=== PATIENT | female | born 1985 | race Caucasian/White ===

== ENCOUNTER 2017-12-09 20:49 | Emergency (ER) | payer SELFPAY ==
[~2017-12-09] VITALS: Ht 162.6 cm; Wt 77.1 kg
[~2017-12-09 20:49] MED LIST: FLAG500 PO; IBUPROFEN800 MG PO; TAMIFLU 75MG75 MG PO
[2017-12-09 20:53] VITALS: BP 167/94
[2017-12-09 21:15] LABS: ABSOLUTE BASOPHIL COUNT 0 /CUMM (0.0-0.2); ABSOLUTE EOSINOPHIL COUNT 0.2 /CUMM (0.0-0.7); ABSOLUTE GRANULOCYTE CT 3.2 /CUMM (1.4-6.5); ABSOLUTE LYMPH COUNT 2.1 /CUMM (1.2-3.4); ABSOLUTE MONOCYTE COUNT 0.7 /CUMM (0.10-0.60); BASOPHIL % 0.5 % (0.0-2.0); EOSINOPHIL % 2.5 % (0-5); GRANULOCYTE % 52.3 % (42.2-75.2); HEMATOCRIT 39.2 % (37-47); MEAN CORPUSCULAR HGB 29.4 PG (27.0-31.0); MEAN CORPUSCULAR HGB CONC 33.9 G/DL (33.0-37.0); MEAN CORPUSCULAR VOLUME 86.7 FL (81.0-99.0); MEAN PLATELET VOLUME 9.4 FL (7.4-10.4); PLATELET COUNT 168 /CUMM (130-400); RED BLOOD CELL CT 4.52 /CUMM (4.20-5.40); WHITE BLOOD CELL COUNT 6.1 /CUMM (4.8-10.8)
--- NOTE | 2017-12-09 21:52 | ED GI/GU/ABDOMINAL COMPLAINT ---
History of Present Illness General Chief Complaint: Abdominal Pain/Flank Pain Stated Complaint: LWR ABD PAIN RADIATING DOWN LEFT LEG Source: patient, old records Exam Limitations: no limitations Vital Signs & Intake/Output Vital Signs & Intake/Output Vital Signs Date Time Temp Pulse Resp B/P B/P Pulse O2 O2 Flow FiO2 Mean Ox Delivery Rate 12/099 Room Air 12/09 2052 96.8 78 18 167/94 97 Room Air ED Intake and Output 12/10 0000 12/09 1200 Intake Total Output Total Balance Patient 170 lb Weight Allergies Coded Allergies: nut - unspecified (Severe, THROAT CLOSURE 11/02/15) Sulfa (Sulfonamide Antibiotics) (UNKNOWN 11/02/15) Reconcile Medications Oseltamivir Phosphate (Tamiflu 75MG) 75 MG CAP 1 TAB PO BID . Triage Note: PT TO TRIAGE STATING SHE IS ON HER THIRD DAY OF MENSES AND SHE HAS BEEN HAVING LEFT LOWER QUADRANT "SQUEEZING" PAIN THAT RADIATES DOWN LEG, HAS SUBSIDED SOME NOW. PT STATES SHE WAS TOLD SHE HAD OVARIAN CYSTS DURING HER ONE AND ONLY 5 YEARS AGO. Triage Nurses Notes Reviewed? yes LMP (ages 10-50): now ? n Is pt currently ? No Onset: Abrupt Duration: day(s): (1), intermittent, waxing and waning Timing: recent history Quality/Severity: cramping Severity Numbers: 5 Location: left lower quadrant Radiation: back Activities at Onset: none No Modifying Factors: none Associated Symptoms: denies HPI: 32-year-old female history of ovarian cyst presents to the ER for evaluation stating that she developed left lower quadrant pain that radiates to her back and into her left thigh that began earlier today while at work she describes it as his wheezing cramping pain. She states she is on her third day of her menses and states that it is normal with the worst. She states 5 years ago when she had her she had bilateral ovarian cysts and that this feels similar. There is no right lower quadrant pain. She states she felt nauseous earlier from the pain denies vomiting denies dysuria frequency urgency hematuria. No diarrhea. She is not taken anything for her symptoms reports it comes in waves currently denies any pain (Laurel CABRERA,Jose) Past History Travel History Traveled to [place] past 21 day No Medical History Any Pertinent Medical History? none Neurological: NONE EENT: NONE Cardiovascular: NONE Respiratory: NONE Gastrointestinal: NONE Hepatic: NONE Renal: NONE Musculoskeletal: NONE Psychiatric: NONE Endocrine: NONE Blood Disorders: NONE Cancer(s): NONE CREDIT ASSOCIATE/Reproductive: NONE Surgical History Surgical History: N Psychosocial History What is your primary language Guyanese Tobacco Use: Never used Family History Hx Contributory? No (Jose Ruiz) Review of Systems Review of Systems Constitutional: Reports: see HPI. Comments Review of systems: See HPI, All other systems negative. Constitutional, no chills no fever HEENT: no sore throat no congestion Cardiovascular: No chest pain Skin: no rashes, no change in skin Respiratory: No dyspnea no cough no sputum GI: No nausea no vomiting : No dysuria No hematuria, no frequency Muscle skeletal: No joint pain, no back pain Neurologic: , no headache Heme/endocrine: No bruising Immunology: No lymphadenopathy (Jose Ruiz) Physical Exam Physical Exam General Appearance: well developed/nourished, no apparent distress, alert, awake Gastrointestinal: normal bowel sounds, soft, non-tender Comments: Well-developed well-nourished person in no acute distress HEENT: Normal EENT exam; PERRL, EOMI, HEAD is atraumatic. moist mucous membranes. Neck: Supple, normal range of motion Back: Nontender, no CVA tenderness. Full range of motion Cardiovascular: Regular rate and rhythms no murmurs Respiratory: No respiratory distress. Patient speaking in full complete sentences. Breath sounds clear to auscultation bilaterally: NO W/R/R Abdomen: Soft, nontender nondistended, no appreciable organomegaly. Normal bowel sounds. No rebound/guarding, Extremity: No edema, full range of motion of extremities Neuro: Alert oriented x3, motor sensory normal, There were no obvious focal neurologic abnormalities. Skin: No appreciable rash on exposed skin, skin is warm and dry. Psych: Mood and affect is normal, memory and judgment is normal. Core Measures ACS in differential dx? No Sepsis Present: No Sepsis Focused Exam Completed? No (Jose Ruiz) Progress Differential Diagnosis: appendicitis, biliary colic, bowel obstruction, ectopic , inflamm bowel dis, intrauterine , kidney stone, ovarian cyst , ovarian torsion, peptic ulcer, PUD/GERD, perforated viscous, SBO, threatened AB Plan of Care: Orders Procedure Date/time Status Add-on Test (ER Only) 12/09 2150 Active HUMAN BETA HCG SCREEN 12/10 2103 Complete URINALYSIS 12/10 2055 Complete COMPREHENSIVE METABOLIC PANEL 12/10 2055 Complete CBC WITHOUT DIFFERENTIAL 12/10 2055 Complete Laboratory Tests 12/09/172227: Urine Color YEL, Urine Clarity CLEAR, Urine pH 6.0, Ur Specific [place] >= 1.030 , Urine Protein NEG, Urine Ketones NEG, Urine Nitrite NEG, Urine Bilirubin NEG, Urine Urobilinogen 0.2, Ur Leukocyte Esterase NEG, Ur Microscopic SEDIMENT EXAMINED, Urine RBC 1-3, Urine WBC 1-3 H, Ur Epithelial Cells FEW, Urine Hemoglobin MOD H, Urine Glucose NEG 12/09/172103: Anion Gap 10, Estimated GFR > 60, BUN/Creatinine Ratio 20.0, Glucose 94, Calcium 9.4, Total Bilirubin 0.5, AST 19, ALT 22, Alkaline Phosphatase 81, Total Protein 7.4, Albumin 4.5, Globulin 2.9, Albumin/Globulin Ratio 1.6, Total Beta HCG NEGATIVE, CBC w Diff NO MAN DIFF REQ, RBC 4.52, MCV 86.7, MCH 29.4, MCHC 33.9, RDW 13.0, MPV 9.4, Gran % 52.3, Lymphocytes % 33.9, Monocytes % 10.8 H, Eosinophils % 2.5, Basophils % 0.5, Absolute Granulocytes 3.2, Absolute Lymphocytes 2.1, Absolute Monocytes 0.7 H, Absolute Eosinophils 0.2, Absolute Basophils 0 Patient has a history of ovarian cyst reports it is similar resting in no acute distress at this time toradol 30 IV IV fluids CAT scan ordered 2345 PTRESTING IN NAD, DNEIES PAIN, D/WHER ALL OF HER LABS, PENDING CT 0020- I discussed with the patient her CAT scan results she remains asymptomatic reports improvement in symptoms with Toradol. Return precautions were discussed at length she feels comfortable with plan and discharge at this time. Diagnostic Imaging: Viewed by Me: CT Scan. Discussed w/RAD: CT Scan. Radiology Impression: PATIENT: CHANNING DENISE PRESENT AGE: 32 PATIENT ACCOUNT NO: [id number] : 86 LOCATION: [facility] ORDERING PHYSICIAN: Jose CABRERA SERVICE DATE: 12/09/17 EXAM TYPE: CAT - CT ABD & PELVIS W IV CONTRAST EXAMINATION: CT ABDOMEN AND PELVIS WITH CONTRAST CLINICAL INFORMATION: Left lower quadrant abdominal pain COMPARISON: 07/26/2015 TECHNIQUE: Multidetector volumetric imaging was performed of the abdomen and pelvis following IV administration of 95 mL of Optiray 320 intravenous contrast. Sagittal and coronal reformatted images were obtained on the technologist's workstation. DLP: 638 mGy-cm FINDINGS: LUNG BASES: The visualized lung bases are unremarkable. LIVER, GALLBLADDER, AND BILIARY TREE: The liver is normal in size, shape, and attenuation. No focal hepatic lesion or biliary ductal dilatation is present. The gallbladder is unremarkable with no evidence of radiopaque gallstones, gallbladder wall thickening, or obvious pericholecystic inflammatory changes. PANCREAS: Unremarkable. SPLEEN: Unremarkable. ADRENAL GLANDS: Unremarkable. KIDNEYS AND URETERS: The kidneys are normal in size, shape, and attenuation. No hydronephrosis, hydroureter, or calculi seen. No perinephric stranding. BLADDER: Unremarkable. GASTROINTESTINAL TRACT: The stomach is unremarkable. The small bowel is normal in caliber. No obstruction. Normal appendix. No colonic wall thickening or inflammatory change. No free air or free fluid. ABDOMINAL WALL: No significant hernia is appreciated. LYMPH NODES: Normal. VASCULAR: Normal caliber aorta. Circumaortic left renal vein. PELVIC VISCERA: The uterus and adnexa are unremarkable. No significant ovarian cyst noted. Tampon in place. OSSEOUS STRUCTURES: No acute or suspicious osseous abnormality. Small endplate osteophytes at the lower thoracic spine. IMPRESSION: No acute findings of the abdomen or pelvis. No inflammatory changes. No adnexal mass. DICTATED BY: Terrence Qiu MD DATE/TIME DICTATED:12/09/172344 PAPER [place] MACHINE OPERATOR:ANDRAE DATE/TIME TRANSCRIBED:12/09/172344 CONFIDENTIAL, DO NOT COPY WITHOUT APPROPRIATE AUTHORIZATION. <Electronically signed in Other Vendor System> SIGNED BY: Terrence Qiu MD 12/09/17 7475 Initial ED EKG: none (Jose Ruiz) Departure Departure Time of Disposition: 14 Disposition: HOME OR SELF CARE Condition: Stable Clinical Impression Primary Impression: Abdominal pain Referrals: Patient Has No Primary Care Dr (PCP/Family) Additional Instructions: Follow-up with your slot ambassador and primary care physician on Monday. Tylenol Motrin for pain. Return to the emergency room anytime sooner if any concerns. Departure Forms: Customer Survey General Discharge Information (Jose Ruiz) PA/DYNAMO TENDER Co-Sign Statement Statement: ED Attending supervision documentation- I saw and evaluated the patient. I have also reviewed all the pertinent lab results and diagnostic results. I agree with the findings and the plan of care as documented in the PA's/DYNAMO TENDER's documentation. x I have reviewed the ED Record and agree with the PA's/DYNAMO TENDER's documentation. [] Additions or exceptions (if any) to the PAs/DYNAMO TENDER's note and plan are summarized below: [] (Faizan PEÑA,Les)
--- NOTE | 2017-12-09 23:52 | CT SCAN REPORT ---
EXAMINATION: CT ABDOMEN AND PELVIS WITH CONTRAST CLINICAL INFORMATION: Left lower quadrant abdominal pain COMPARISON: 07/26/2015 TECHNIQUE: Multidetector volumetric imaging was performed of the abdomen and pelvis following IV administration of 95 mL of Optiray 320 intravenous contrast. Sagittal and coronal reformatted images were obtained on the technologist's workstation. DLP: 638 mGy-cm FINDINGS: LUNG BASES: The visualized lung bases are unremarkable. LIVER, GALLBLADDER, AND BILIARY TREE: The liver is normal in size, shape, and attenuation. No focal hepatic lesion or biliary ductal dilatation is present. The gallbladder is unremarkable with no evidence of radiopaque gallstones, gallbladder wall thickening, or obvious pericholecystic inflammatory changes. PANCREAS: Unremarkable. SPLEEN: Unremarkable. ADRENAL GLANDS: Unremarkable. KIDNEYS AND URETERS: The kidneys are normal in size, shape, and attenuation. No hydronephrosis, hydroureter, or calculi seen. No perinephric stranding. BLADDER: Unremarkable. GASTROINTESTINAL TRACT: The stomach is unremarkable. The small bowel is normal in caliber. No obstruction. Normal appendix. No colonic wall thickening or inflammatory change. No free air or free fluid. ABDOMINAL WALL: No significant hernia is appreciated. LYMPH NODES: Normal. VASCULAR: Normal caliber aorta. Circumaortic left renal vein. PELVIC VISCERA: The uterus and adnexa are unremarkable. No significant ovarian cyst noted. Tampon in place. OSSEOUS STRUCTURES: No acute or suspicious osseous abnormality. Small endplate osteophytes at the lower thoracic spine. IMPRESSION: No acute findings of the abdomen or pelvis. No inflammatory changes. No adnexal mass.
== END 2017-12-10 00:28 ==
LOC: ERH 20:49
PROVIDERS: Physician Assistant Medical
DX: R10.32 Left lower quadrant pain (principal)
CPT/HCPCS: 74177; 81001; 81003; 81025; 96374; J1885